=== PATIENT | female | born 1965 | race Caucasian/White ===

== ENCOUNTER 2024-02-02 07:58 | Day surgery (SDC) | payer OTHER ==
[~2024-02-02] VITALS: Ht 162.6 cm; Wt 98.9 kg
[2024-02-02] MEDS ORDERED: fentaNYL citrate 0.05 MG/ML VIAL ONE (09:42)
[2024-02-02] MEDS ORDERED: LIDOCAINE 2% 100 MG/5 ML UJET TP ONE (09:42)
== END 2024-02-02 12:30 | disposition home or self-care (01) ==
LOC: MMU 07:58 → MOR 07:58
PROVIDERS: ATTEND Internal Medicine Gastroenterology
DX: R10.12 Left upper quadrant pain (principal); Z80.0 Family history of malignant neoplasm of digestive organs; Z98.891 History of uterine scar from previous surgery; Z79.899 Other long term (current) drug therapy; Z98.890 Other specified postprocedural states
CPT/HCPCS: 45378; J3010